=== PATIENT | female | born 1940 | race Caucasian/White ===

== ENCOUNTER 2016-04-28 09:05 | Emergency (ER) | payer OTHER, MEDICARE ==
[~2016-04-28] VITALS: Ht 149.9 cm; Wt 63.0 kg
[~2016-04-28 09:05] MED LIST: ASPI81TA82 PO; ATOR80TA PO; LATA.005%O RIGHT EYE; LISI-363 PO; TIMO0.5S6 RIGHT EYE; VITA-13 PO
[2016-04-28 09:08] VITALS: BP 193/88; PULSE 55; RESP 15; TEMP 97.1; O2SAT 98
[2016-04-28] MEDS ORDERED: ATOR1TAB18 PO (09:55)
[2016-04-28] MEDS ORDERED: LISI-515 PO (09:55)
[2016-04-28] MEDS ORDERED: LATA0.002 RIGHT EYE (09:55)
[2016-04-28] MEDS ORDERED: OMEP20TA PO (09:55)
[2016-04-28] MEDS ORDERED: ASPI81CH37 CHEW (09:55)
[2016-04-28] MEDS ORDERED: TIMO0.5S30 RIGHT EYE (09:55)
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
[2016-04-28] MEDS ORDERED: TRAM50TA PO (10:59)
--- NOTE | 2016-04-28 21:27 | EKG ---
Date Performed: 04/28/2016 Time Performed: 09:40:35 PTAGE: 76 years EKG: SINUS BRADYCARDIA WITH OCCASIONAL ATRIAL COMPLEXES Can not exclude inferior infarct-age ind eterminate. When compared to previous tracing, heart rate is much slower, Otherwise no significant ch lloyd. BORDERLINE ECG PREVIOUS TRACING : 12/23/2015 17.54 DOCTOR: Tarun Levi Interpretating Date/Time 04/28/2016 21:26:15
[2016-07-13] MEDS ORDERED: AMOX500C PO (07:24)
== END 2016-04-28 11:38 | disposition home or self-care (01) ==
LOC: NEPE 09:05
DX: S20.219A Contusion of unspecified front wall of thorax, initial encounter (principal); I25.2 Old myocardial infarction; I10 Essential (primary) hypertension; E78.00 Pure hypercholesterolemia, unspecified; F41.9 Anxiety disorder, unspecified; Z95.1 Presence of aortocoronary bypass graft; Z79.82 Long term (current) use of aspirin; V43.52XA Car driver injured in collision with other type car in traffic accident, initial encounter; Y93.9 Activity, unspecified; Y92.9 Unspecified place or not applicable; Y99.9 Unspecified external cause status
CPT/HCPCS: 71020; 93005

== ENCOUNTER → 2016-07-13 | Day surgery (SDC) | payer MEDICARE ==
[~2016-07-13] VITALS: Ht 149.9 cm; Wt 68.2 kg
[~2016-07-13] MED LIST changes: +AMOX500C PO; +ASPI81CH37 CHEW; -ASPI81TA82 PO; +ATOR1TAB18 PO; -ATOR80TA PO; +CYCLOPENTOLATE HCL 1% OPHT SOLN 2 ML BTL ONE; +FLURBIPROFEN 0.03% OPHT SOLN 2.5 ML BTL ONE; -LATA.005%O RIGHT EYE; +LATA0.002 RIGHT EYE; +LIDOCAINE HCL 1% PF 30 ML VIAL ONE; +LIDOCAINE HCL 2% JELLY 5 ML SYRINGE ONE; -LISI-363 PO; +LISI-515 PO; +OMEP20TA PO; +PHENYLEPHRINE HCL 10% OPTH SOLN 5 ML BTL ONE; +PROPARACAINE HCL 0.5% OPHT SOLN 15 ML BTL ONE; +SODIUM CHLORID 0.9% 500 ML INJ 500 ML ONE; +TIMO0.5S30 RIGHT EYE; -TIMO0.5S6 RIGHT EYE; +TRAM50TA PO; +TROPICAMIDE 1% OPHT SOLN 15 ML BTL ONE; -VITA-13 PO
[2016-07-13 07:30] VITALS: BP 135/78; PULSE 52; RESP 20; TEMP 97.6; O2SAT 97
[2016-07-13] MEDS: TOBRAMYCIN/DEXAMETHASONE OPTH OINT 3.5 GM TUBE ONE ×2 (08:42→08:50)
[2016-07-13 08:56] VITALS: TEMP 98
[2016-07-13 09:15] VITALS: BP 128/79; PULSE 58; RESP 16; O2SAT 97
--- NOTE | 2016-07-15 19:23 | MP ---
cc: ADAMS PARRA M.D. [facility] #[id number] POSTOPERATIVE DIAGNOSIS: Visually significant cataract right eye. OPERATION: Phacoemulsification with posterior chamber lens implantation, right eye. SURGEON: Adams Parra MD ANESTHESIA: Topical with MAC. COMPLICATIONS: None. PROCEDURE: After informed consent was obtained, the patient was brought into the operative suite and placed on appropriate monitors by the Anesthesia Service. The patient had been given dilating drops and topical lidocaine gel in the holding area. The patient's operative eye was then prepped and draped in the usual sterile fashion. A wire lid speculum was placed. Further 2% lidocaine was then dropped on the cornea prior to beginning the procedure. A paracentesis incision was made in the peripheral cornea with a 1 mm rivka keratome. The anterior chamber was filled with viscoelastic. The anterior chamber was then entered through a stepped, clear corneal incision using a sharp 3 mm rivka keratome. A circular tear capsulorrhexis was then made with a bent needle cystitome. Following hydrodissection of the lens nucleus with balance saline, phaco-emulsification of the nucleus was performed using a modified chopping technique. The remaining cortex was removed with irrigation/aspiration. The prior two procedures were both performed using the handpieces of the [employer] phaco unit. The capsular bag was then filled with viscoelastic. The intraocular lens was then injected into the capsular bag and positioned. The type of intraocular lens and its power can be found elsewhere in this chart. The remaining viscoelastic was then removed from the anterior chamber with the IA handpiece. The anterior chamber was reformed with balanced saline. The wound was then closed securely with stromal hydration. It was found to be watertight to an intraocular pressure of at least 30 mmHg by palpation. A small amount of balanced salt solution was then removed through the paracentesis site and the intraocular pressure at the end of the case was approximately 20 by palpation. All drapes were then removed. TobraDex ointment was then placed in the eye, which was closed beneath a semi-pressure patch dressing. The patient tolerated this procedure well and left the operating room awake and alert. The patient is to follow-up in my office in the morning. MD SARAH Rossi/ /10:01 AM /7:21 PM
== END | disposition home or self-care (01) ==
LOC: PHSDC 06:55
PROVIDERS: ATTEND Optometrist Occupational Vision
DX: H26.9 Unspecified cataract (principal)
CPT/HCPCS: 00142; 66984; J7040; V2632